=== PATIENT | male | born 1960 | race African-American/Black ===

== ENCOUNTER 2018-03-08 12:51 | Emergency (ER) | payer OTHER ==
[~2018-03-08] VITALS: Ht 167.6 cm; Wt 79.5 kg
[~2018-03-08 12:51] MED LIST: NITROSTAT0.4 MG/TAB SL; NO HOME MEDICATIONS; PREDNISONE20 MG PO; XALATAN 2.5 ML2.5 ML OU
[2018-03-08 12:53] VITALS: TEMP 98.7
[2018-03-08 13:45] LABS: BASO % 0.5 % (0.0-2.0); EOS # 0.1 (0.0-0.7); EOS % 1.2 % (0-4.0); GRAN # 2.4 (1.4-6.5); GRAN % 57.2 % (42.2-75.2); HEMATOCRIT 42.9 % (42.0-52.0); HEMOGLOBIN 14.7 g/dl (13.5-18.0); LYMPH # 1.2 (1.2-3.4); LYMPH % 28.7 % (20.0-51.0); MEAN CELL VOLUME 91 fl (80.0-100.0); MEAN CORPUSCULAR HEMOGLOBIN 31 pg (27.0-31.0); MEAN CORPUSCULAR HGB CONC 34 g/dl (33.0-37.0); MEAN PLATELET VOLUME 9.7 fl (7.4-10.4); MONO # 0.5 (0.1-0.6); MONO % 12.2 % (1.7-9.3); PLATELET COUNT 226 K/mm3 (130-400); RED BLOOD COUNT 4.73 M/mm3 (4.20-5.60); REDCELL DISTRIBUTION WIDTH-CV 15.8 % (11.5-14.5)
[2018-03-08 13:50] LABS: ALANINE AMINOTRANSFERASE 34 U/L (21-72); ALBUMIN 3.9 gm/dL (3.5-5.0); ALKALINE PHOSPHATASE 62 U/L (50-136); ANION GAP 12 mmol/L (7-16); AST,SGOT 33 U/L (15-37); BLOOD UREA NITROGEN 18 mg/dL (9-20); CALCIUM 9.4 mg/dL (8.4-10.2); CARBON DIOXIDE 24 mmol/L (22-30); CHLORIDE 102 mmol/L (98-107); CREATININE, serum 1.15 mg/dL (0.66-1.25); GLUCOSE 96 mg/dL (74-106); LIPASE 61 U/L (23-300); POTASSIUM 3.7 mmol/L (3.4-5.0); SODIUM 138 mmol/L (137-145); TOTAL PROTEIN 7.2 gm/dL (6.4-8.2)
[2018-03-08 14:03] LABS: TROPONIN-I < 0.012 ng/mL (0.000-0.034)
[2018-03-08] MEDS ORDERED: LIPITOR 80MG80 MG PO (14:05)
[2018-03-08] MEDS ORDERED: TIMOLOL MALEATE5 M1 OP (14:05)
[2018-03-08] MEDS ORDERED: SINGULAIR 110 MG/TAB PO (14:06)
[2018-03-08] MEDS ORDERED: PROTONIX 40MG T40 MG PO (15:42)
[2018-03-08] MEDS ORDERED: CARAFATE 1GM1 G PO (15:42)
[2018-03-08 16:45] VITALS: BP 131/87; PULSE 72
== END 2018-03-08 16:46 | disposition home or self-care (01) ==
LOC: COL.ER 12:51
PROVIDERS: Emergency Medicine
DX: K20.9 Esophagitis, unspecified (principal); I10 Essential (primary) hypertension; E78.00 Pure hypercholesterolemia, unspecified

== ENCOUNTER → 2018-05-25 | Outpatient (CLI) | payer OTHER ==
[~2018-05-25] MED LIST changes: +CARAFATE 1GM1 G PO; +LIPITOR 80MG80 MG PO; +PROTONIX 40MG T40 MG PO; +SINGULAIR 110 MG/TAB PO; +TIMOLOL MALEATE5 M1 OP
[2018-05-25 12:52] LABS: BASO % 0.3 % (0.0-2.0); EOS # 0.1 (0.0-0.7); EOS % 1.3 % (0-4.0); GRAN # 2.8 (1.4-6.5); GRAN % 70.8 % (42.2-75.2); HEMATOCRIT 45.1 % (42.0-52.0); HEMOGLOBIN 15.5 g/dl (13.5-18.0); LYMPH # 0.8 (1.2-3.4); LYMPH % 19.4 % (20.0-51.0); MEAN CELL VOLUME 91 fl (80.0-100.0); MEAN CORPUSCULAR HEMOGLOBIN 31 pg (27.0-31.0); MEAN CORPUSCULAR HGB CONC 34 g/dl (33.0-37.0); MEAN PLATELET VOLUME 9.7 fl (7.4-10.4); MONO # 0.3 (0.1-0.6); MONO % 8.2 % (1.7-9.3); PLATELET COUNT 209 K/mm3 (130-400); RED BLOOD COUNT 4.94 M/mm3 (4.20-5.60); REDCELL DISTRIBUTION WIDTH-CV 12.8 % (11.5-14.5)
[2018-05-25 13:27] LABS: ERYTHROCYTE SEDIMENTATION RATE 1 mm/hr (0-30)
[2018-05-26 06:46] LABS: COMPLEMENT-C4 34 mg/dL (18-55)
== END ==
LOC: COL.LAB 12:12
PROVIDERS: Allergy & Immunology
DX: T78.3XXD Angioneurotic edema, subsequent encounter (principal)

== ENCOUNTER → 2019-01-26 | Outpatient (CLI) | payer OTHER | LOC: COL.RAD 10:56 | DX: R10.31 Right lower quadrant pain (principal) | CPT/HCPCS: Q9967 ==

== ENCOUNTER → 2019-05-10 | Outpatient (CLI) | payer OTHER | LOC: COL.RAD 07:34 | DX: K21.0 Gastro-esophageal reflux disease with esophagitis (principal); R14.2 Eructation; R14.0 Abdominal distension (gaseous); R68.81 Early satiety | CPT/HCPCS: A9541 ==